=== PATIENT | male | born 1985 ===

== ENCOUNTER 2017-02-11 15:44 | Emergency (ER) | payer OTHER ==
[~2017-02-11] VITALS: Ht 172.7 cm; Wt 79.4 kg
[~2017-02-11 15:44] MED LIST: ALBU90OI INH; AMOX500 PO; AZIT250 PO; BUPR150T2 PO; Bactrim Ds Tab1 EACH PO; CEPH500 PO; CLIN300 PO; CRUTCH4 USE; HYDACE5 PO; HYDHCL25 PO; IBUP600 PO; IBUP800 PO; Keflex500 MG PO; MULTIVITAMIN; MUPI2TO TOP; Mobic15 MG PO; PRAZ5 PO; PRED20 PO; PROM25 PO; Prednisone20 MG PO; QUET100; RISPERDAL; SEROQUEL; SERT100 PO; SPACE CHAMBER1 EACH MC; TRILEPTAL; Ventolin Soln3 ML INH
== END 2017-02-11 17:40 | disposition left against medical advice (07) ==
LOC: ER 15:44
DX: S52.612A Displaced fracture of left ulna styloid process, initial encounter for closed fracture (principal); I10 Essential (primary) hypertension; J45.909 Unspecified asthma, uncomplicated; F17.200 Nicotine dependence, unspecified, uncomplicated; Z86.14 Personal history of Methicillin resistant Staphylococcus aureus infection; Z88.5 Allergy status to narcotic agent; W01.0XXA Fall on same level from slipping, tripping and stumbling without subsequent striking against object, initial encounter
CPT/HCPCS: 73110; 99283

== ENCOUNTER 2019-06-12 03:34 | Emergency (ER) | payer OTHER ==
[~2019-06-12] VITALS: Ht 175.3 cm; Wt 86.2 kg
[~2019-06-12 03:34] MED LIST changes: +METH40 PO
== END 2019-06-12 04:41 | disposition home or self-care (01) ==
LOC: ER 03:34
DX: R06.02 Shortness of breath (principal); I10 Essential (primary) hypertension; J45.909 Unspecified asthma, uncomplicated; F17.210 Nicotine dependence, cigarettes, uncomplicated; Z88.5 Allergy status to narcotic agent
CPT/HCPCS: 71045; 99283-25

== ENCOUNTER 2019-07-22 21:49 | Emergency (ER) | payer OTHER ==
[~2019-07-22] VITALS: Ht 175.3 cm; Wt 81.7 kg
[2019-07-23] MEDS ORDERED: [UNRECOGNIZED DRUG - OTHER] SL (03:52)
[2019-07-23] MEDS ORDERED: EUTHYROX25 MCG (03:53)
[2019-07-23] MEDS ORDERED: Prednisone20 MG PO (04:51)
== END 2019-07-22 23:04 | disposition left against medical advice (07) ==
LOC: ER 21:49
DX: Z53.21 Procedure and treatment not carried out due to patient leaving prior to being seen by health care provider (principal)

== ENCOUNTER 2019-07-23 03:25 | Emergency (ER) | payer OTHER ==
[~2019-07-23] VITALS: Ht 175.3 cm; Wt 83.9 kg
[2019-07-23] MEDS ORDERED: [UNRECOGNIZED DRUG - OTHER] SL (03:52)
[2019-07-23] MEDS ORDERED: EUTHYROX25 MCG (03:53)
[2019-07-23] MEDS ORDERED: Prednisone20 MG PO (04:51)
== END 2019-07-23 05:07 | disposition home or self-care (01) ==
LOC: ER 03:25
DX: L50.0 Allergic urticaria (principal); I10 Essential (primary) hypertension; F17.210 Nicotine dependence, cigarettes, uncomplicated; Z88.5 Allergy status to narcotic agent; Z79.899 Other long term (current) drug therapy
CPT/HCPCS: 96361; 96374; 96375; 99282-25; J1200; J2930; J7030

== ENCOUNTER 2019-07-25 17:23 | Emergency (ER) | payer OTHER ==
[~2019-07-25] VITALS: Ht 175.3 cm; Wt 83.5 kg
[~2019-07-25 17:23] MED LIST changes: +EUTHYROX25 MCG; +[UNRECOGNIZED DRUG - OTHER] SL
[2019-07-25] MEDS ORDERED: CEPH500 PO (20:21)
== END 2019-07-25 20:45 | disposition home or self-care (01) ==
LOC: ER 17:23
DX: S51.011A Laceration without foreign body of right elbow, initial encounter (principal); J45.909 Unspecified asthma, uncomplicated; I10 Essential (primary) hypertension; Z23 Encounter for immunization; Z88.5 Allergy status to narcotic agent; Z79.2 Long term (current) use of antibiotics; Z79.899 Other long term (current) drug therapy; F17.210 Nicotine dependence, cigarettes, uncomplicated; X58.XXXA Exposure to other specified factors, initial encounter
CPT/HCPCS: 73090; 90471; 90714; 99283-25; A9270

== ENCOUNTER → 2019-12-19 | Outpatient (CLI) | payer OTHER ==
[~2019-12-19] MED LIST changes: +FLUT1DIS2 INH
[2019-12-21 13:09] LABS: CHLAMYDIA BY NAA Negative (Negative); GONOCOCCUS BY NAA Negative (Negative); TRICH VAG BY NAA Negative (Negative)
== END ==
LOC: LAB SHORT 14:34 → LAB UCHC 14:34
PROVIDERS: Registered Nurse Community Health
DX: Z20.2 Contact with and (suspected) exposure to infections with a predominantly sexual mode of transmission (principal)
CPT/HCPCS: 87491; 87591; 87661

== ENCOUNTER 2019-12-25 08:27 | Emergency (ER) | payer OTHER ==
[~2019-12-25] VITALS: Ht 175.3 cm; Wt 81.7 kg
[2019-12-25] MEDS ORDERED: Prednisone20 MG PO (09:33)
[2019-12-25] MEDS ORDERED: ALBU90OI INH (09:33)
== END 2019-12-25 10:02 | disposition home or self-care (01) ==
LOC: ER 08:27
DX: J44.1 Chronic obstructive pulmonary disease with (acute) exacerbation (principal); I10 Essential (primary) hypertension; J45.909 Unspecified asthma, uncomplicated; F17.210 Nicotine dependence, cigarettes, uncomplicated; Z88.5 Allergy status to narcotic agent; Z79.52 Long term (current) use of systemic steroids; Z79.899 Other long term (current) drug therapy
CPT/HCPCS: 71045; 94640; 99284-25; J7512

== ENCOUNTER 2020-01-20 05:01 | Emergency (ER) | payer OTHER ==
[~2020-01-20] VITALS: Ht 175.3 cm; Wt 86.2 kg
[2020-01-20] MEDS ORDERED: PRED20 PO (06:09)
[2020-01-20] MEDS ORDERED: FLUT1DIS2 INH (07:31)
[2020-01-20] MEDS ORDERED: ALBU90OI INH (07:31)
== END 2020-01-20 07:40 | disposition home or self-care (01) ==
LOC: ER 05:01
DX: J45.901 Unspecified asthma with (acute) exacerbation (principal); Z79.899 Other long term (current) drug therapy
CPT/HCPCS: 94644; 96365; 96375; 99284-25; J1100; J3475

== ENCOUNTER 2020-02-09 02:38 | Emergency (ER) | payer OTHER ==
[~2020-02-09] VITALS: Ht 175.3 cm; Wt 86.2 kg
[2020-02-09 04:06] LABS: Influenza A, PCR Negative (NEGATIVE); Influenza B, PCR Negative (NEGATIVE); Resp Syncytial Virus, PCR Negative (NEGATIVE); SARS-Cov-2 (COVID-19) PCR, MMC Negative (NEGATIVE)
== END 2020-02-09 04:25 | disposition home or self-care (01) ==
LOC: ER 02:38
PROVIDERS: Emergency Medicine
DX: J02.9 Acute pharyngitis, unspecified (principal); R06.02 Shortness of breath; R51.9 Headache, unspecified; I10 Essential (primary) hypertension; J45.909 Unspecified asthma, uncomplicated; F17.210 Nicotine dependence, cigarettes, uncomplicated; Z20.828 Contact with and (suspected) exposure to other viral communicable diseases; Z88.5 Allergy status to narcotic agent; Z79.52 Long term (current) use of systemic steroids; Z79.899 Other long term (current) drug therapy
CPT/HCPCS: 0241U; 99283

== ENCOUNTER 2020-02-26 17:16 | Emergency (ER) | payer OTHER ==
[~2020-02-26] VITALS: Ht 175.3 cm; Wt 86.2 kg
[2020-02-26] MEDS ORDERED: FLUTICASONE-SA1 EAC8 (17:22)
[2020-02-26] MEDS ORDERED: Ventolin/Prove6.7 GM (17:22)
[2020-06-02] MEDS ORDERED: METH40 (23:18)
[2020-06-03] MEDS ORDERED: PRED20 PO (00:07)
[2020-06-22] MEDS ORDERED: CEPH500 PO (05:10)
[2020-06-22] MEDS ORDERED: Bactrim Ds Tab1 EACH PO (05:10)
== END 2020-02-26 17:46 | disposition home or self-care (01) ==
LOC: ER 17:16
DX: Z00.00 Encounter for general adult medical examination without abnormal findings (principal); I10 Essential (primary) hypertension; J45.909 Unspecified asthma, uncomplicated; F17.210 Nicotine dependence, cigarettes, uncomplicated; Z88.5 Allergy status to narcotic agent; Z79.899 Other long term (current) drug therapy
CPT/HCPCS: 93005; 93010; 99281-25

== ENCOUNTER 2020-04-05 20:04 | Emergency (ER) | payer OTHER ==
[~2020-04-05] VITALS: Ht 175.3 cm; Wt 90.7 kg
[~2020-04-05 20:04] MED LIST changes: +FLUTICASONE-SA1 EAC8; +Ventolin/Prove6.7 GM
[2020-04-05] MEDS ORDERED: Prednisone50 MG PO (23:15)
[2020-06-02] MEDS ORDERED: METH40 (23:18)
[2020-06-03] MEDS ORDERED: PRED20 PO (00:07)
[2020-06-22] MEDS ORDERED: Bactrim Ds Tab1 EACH PO (05:10)
[2020-06-22] MEDS ORDERED: CEPH500 PO (05:10)
== END 2020-04-05 23:45 | disposition home or self-care (01) ==
LOC: ER 20:04
DX: J45.901 Unspecified asthma with (acute) exacerbation (principal); I10 Essential (primary) hypertension; F17.210 Nicotine dependence, cigarettes, uncomplicated; Z79.899 Other long term (current) drug therapy; Z88.5 Allergy status to narcotic agent
CPT/HCPCS: 94640; 94644; 94645; 99285-25; J7512

== ENCOUNTER 2020-06-02 22:59 | Emergency (ER) | payer OTHER ==
[~2020-06-02] VITALS: Ht 175.3 cm; Wt 90.7 kg
== END 2020-06-03 00:10 | disposition home or self-care (01) ==
LOC: ER 22:59
DX: J45.901 Unspecified asthma with (acute) exacerbation (principal)
CPT/HCPCS: 94644; 96365; 96375; 99284-25; J2930; J3475

== ENCOUNTER 2020-09-13 10:23 | Emergency (ER) | payer OTHER ==
[~2020-09-13] VITALS: Ht 175.3 cm; Wt 93.9 kg
[~2020-09-13 10:23] MED LIST changes: +METH40; +Prednisone50 MG PO
[2020-09-13] MEDS ORDERED: MULVITA PO (10:46)
[2020-09-13] MEDS ORDERED: SUBOXONE 8 MG-1 EACH SL (10:46)
[2020-09-13] MEDS ORDERED: EUTHYROX50 MCG (10:47)
[2020-09-13] MEDS ORDERED: ANTIFUNGAL30 GM TOP (10:51)
[2020-09-13] MEDS ORDERED: CEPH500 PO (10:51)
== END 2020-09-13 11:00 | disposition home or self-care (01) ==
LOC: ER 10:23
DX: B35.3 Tinea pedis (principal); L03.116 Cellulitis of left lower limb; L03.115 Cellulitis of right lower limb; F17.210 Nicotine dependence, cigarettes, uncomplicated; Z88.5 Allergy status to narcotic agent; Z79.899 Other long term (current) drug therapy
CPT/HCPCS: 99282

== ENCOUNTER 2020-09-20 18:39 | Emergency (ER) | payer OTHER ==
[~2020-09-20] VITALS: Ht 175.3 cm; Wt 93.4 kg
[~2020-09-20 18:39] MED LIST changes: +ANTIFUNGAL30 GM TOP; +EUTHYROX50 MCG; +MULVITA PO; +SUBOXONE 8 MG-1 EACH SL
== END 2020-09-20 23:05 | disposition home or self-care (01) ==
LOC: ER 18:39
DX: L29.9 Pruritus, unspecified (principal); I10 Essential (primary) hypertension; F17.210 Nicotine dependence, cigarettes, uncomplicated; Z88.5 Allergy status to narcotic agent; Z79.899 Other long term (current) drug therapy
CPT/HCPCS: 99282

== ENCOUNTER 2021-02-01 12:58 | Inpatient (IN) | payer OTHER ==
[~2021-02-01] VITALS: Ht 175.3 cm; Wt 89.0 kg
[2021-02-01 13:52] LABS: BASOPHILS ABSOLUTE AUTO 0.08 K/mm3 (0.00-0.23); BASOPHILS PERCENT AUTO 1 % (0-2); EOSINOPHILS ABSOLUTE AUTO 0.92 K/mm3 (0.00-0.68); EOSINOPHILS PERCENT AUTO 11 % (0-6); Hematocrit 40.5 % (37.0-53.0); Hemoglobin 13.7 g/dL (13.5-17.5); IMMATURE GRAN ABSOLUTE AUTO 0.01 K/mm3 (0.00-0.10); IMMATURE GRAN PERCENT AUTO 0 % (0-1); LYMPHOCYTES ABSOLUTE AUTO 2.92 K/mm3 (0.84-5.20); LYMPHOCYTES PERCENT AUTO 36 % (21-46); MONOCYTES ABSOLUTE AUTO 0.56 K/mm3 (0.16-1.47); MONOCYTES PERCENT AUTO 7 % (4-13); Mean Corpuscular HGB 28.5 pg (26.0-34.0); Mean Corpuscular HGB Conc 33.8 g/dL (31.5-36.5); Mean Corpuscular Volume 84 fL (80-100); Mean Platelet Volume 11.1 fL (9.1-12.4); NEUTROPHILS PERCENT AUTO 45 % (41-73); Platelet Count 348 K/mm3 (150-400); RDW Coefficient Variation 13.6 % (11.7-14.2); RDW Standard Deviation 42.3 fL (35.1-46.3); Red Blood Cell Count 4.81 M/mm3 (4.30-5.90); White Blood Cell Count 8.09 K/mm3 (4.00-11.30)
[2021-02-01 14:16] LABS: Alanine Aminotransfer (ALT/SGP 26 U/L (12-78); Albumin, Blood 3.5 g/dL (3.4-5.0); Albumin/Globulin Ratio 0.8 (0.8-1.8); Alk Phos 95 U/L (50-136); Anion Gap 8 mmol/L (6-16); Aspartate Aminotrans (AST/SGOT 17 U/L (12-37); Bilirubin, Total 0.3 mg/dL (0.1-1.0); Blood Urea Nitrogen 14 mg/dL (8-24); Bun/Creatinine Ratio 19.4 (12.0-20.0); CO2, Blood 25 mmol/L (21-32); Calcium, Blood 9.2 mg/dL (8.5-10.1); Chloride, Blood 107 mmol/L (98-108); Creatinine, Blood 0.72 mg/dL (0.60-1.20); Ethanol (Alcohol), Blood, Med <3 mg/dL; Globulin, Blood 4.4 g/dL (2.2-4.0); Glomerular Filtration Rate >60 (60-); Glucose, Blood 168 mg/dL (70-99); Potassium, Blood 3.7 mmol/L (3.5-5.5); Sodium, Blood 140 mmol/L (136-145); Total Protein, Blood 7.9 g/dL (6.4-8.2)
[2021-02-01 14:27] LABS: PO2 Arterial 76.2 mmHg (80-100); pH Blood Arterial 7.32 (7.35-7.45)
--- NOTE | 2021-02-01 18:34 | NUR ---
PT ARRIVED TO ICU AT 1605. ORIENTEDX4. C/O SEVERE PAIN AT L CHEST SITE. PT WAS TREATED WITH PO DILAUDID, FENTANYL AND TORADOL. MOVES ALL EXTREMETIES. CHEST TUBE TO -20, NO AIR LEAK, DRAINING SANGINOUS FLUID - [address] WAS PLACED. NO DRAINAGE VISIBLE FROM DRESSING. HE IS ON 2L NC WITH SATS >95. DENIES SHORTNESS OF BREATH. A POWERGLIDE WAS PLACED BY FANNY IN THE R UPPER ARM. PT FIANCE AT BEDSIDE. PT NECKLACES SENT HOME WITH PT'S FIANCE. PT IS NOW APPEARS COMFORTABLE SLEEPING.
--- NOTE | 2021-02-01 19:00 | NUR ---
ASSUME CARE PT LYING IN BED W/ EYES CLOSED RESTING QUIETLY. HE IS EASILY AROUSABLE AND ALERT AND ORIENTED. ON 2L NC HE IS SATING >98% AND ALL OTHER VITALS WNL. HE IS NPO AND HAS NOT VOIDED YET THIS SHIFT. LR 75ML/HR INFUSING TO DEMI P.G. THAT IS C/D/I. LEFT CHEST TUBE IN PLACE TO -20CM H20 SUCTION DRAINING SANGUINEOUS FLUID W/ INTACT DRESSING. SEE SHIFT ASSESSMENT FOR DETAILS.
--- NOTE | 2021-02-01 21:25 | NUR ---
CHEST TUBE NOTICED BLOODY DRAINAGE FROM CHEST TUBE SITE BUT THERE APPEARS TO BE ADEQUATE TIDALING AND PT SATING >97%. INFORMED CHARGE, RN WHO PLACED ORDER FOR CHEST XRAY. CALLED AND SPOKE W/ DR. HOLLINGSWORTH WHO STATES THAT HE IS NOT ABLE TO READ CHEST XRAYS FROM HOME BUT THAT LONG PT'S SATS ARE GOOD AND THERE IS ADEQUATE TIDALING THAT IS SHOULD BE OK.
[2021-02-01 23:23] LABS: U Amphetamine Screen DETECTED; U Barbituate Screen Not Detected; U Benzodiazapine Screen Not Detected; U Buprenorphine Screen Not Detected; U Cannabinoids Screen Not Detected; U Cocaine Screen Not Detected; U Methadone Screen Not Detected; U Methamphetamine Screen DETECTED; U Opiates Screen DETECTED; U Oxycodone Screen Not Detected; U Phencyclidine Screen Not Detected; U Propoxyphene Screen Not Detected
--- NOTE | 2021-02-02 06:45 | NUR ---
SHIFT SUMMARY: NO ACUTE OVERNIGHT EVENTS. PT REMAINS DROSWY BUT EASILY AROUSABLE AND ALERT/ORIENTED. HE CONTINUES TO HAVE LEFT UPPER CHEST PAIN AND MEDICATED PER EMAR. ON 2LNC HE SATS >98%, HR 80-110, AND BP STABLE. HE CONTINUES TO USE THE URINAL W/ A GOOD AMOUNT OF CLEAR YELLOW URINE OUTPUT. TMAX 99.3. NO BM THIS SHIFT. CHANGED LEFT CHEST TUBE DRESSING AND IT REMAINS IS C/D/I WITH NO AIR LEAKS AND DRAINING SEROSANGUINEOUS FLUID. SKIN IS WARM, DRY, AND INTACT. LR CONTINUES TO INFUSE AT 75ML/HR. WILL REPORT TO ONCOMING RN WHEN AVAILABLE.
--- NOTE | 2021-02-02 13:40 | NUR ---
PT. ARRIVE TO FLOOR AT 1230, VIA GURNEY. DOZING AND DID REQUEST PAIN MED RECENTLY, 7 OUT OF 10 CHEST TUBE DISCOMFORT, LEFT SIDE. HAS SINCE BEEN SLEEPING, RESPIRATIONS UNLABORED. cHEST TUBE DRSG. LEFT CHEST CLEAN AND DRY, INTACT. CT TO WATER SEAL, 20CM., SECURED. INSTRUCTED PT. TO USE CALL LIGHT FOR CONCERNS, COMPLAINTS, NEEDS,AND ASSIST TO BR. VERBALIZE UNDERSTANDING.
--- NOTE | 2021-02-02 14:07 | NUR ---
PT. DECLINE GOING TO IMAGING AT THIS TIME. "LATER". TORADOL GIVEN AT THIS TIME FOR C/O GENERALIZE CHEST DISCOMFORT. SATS 98% ON RA. CT TO WATER SEAL
--- NOTE | 2021-02-02 14:23 | NUR ---
TEXT TO DR. HOLLINGSWORTH TO LET HIM KNOW 2 VIEW XRAY REFUSED BY PT. AT THIS TIME.
--- NOTE | 2021-02-02 18:12 | NUR ---
PORTABLE CXR DONE IN ROOM. PATIENT TOLERATE WELL. DRSG. LEFT CHEST REMAINS CLEAN, DRY AND INTACT. CONT. PULSE OX READS 97% ON RA. CT DRAINAGE SEROUSANG TO WATER SEAL. VERBALIZE PAIN RELIEF WITH ONE NORCO.
--- NOTE | 2021-02-03 06:40 | NUR ---
PT IS IN BED AT THIS TIME WHERE HE REMAINS THROUHOUT THE NIGHT AND IS RESTING COMFORTABLY IN STABLE CONDITION. HE IS ASSISTED WITH CARE AND ADLS, C/O PAIN MAINLY IN THE UPPER TORSO AND LEFT FLANK THAT IS RELIEVED BY HYDROCODONE, NO OTHER COMPLAINTS. HE HAS A CHEST TUBE IN PLACE AND IS PATENT, DRESSING OVER THE CHEST TUBE SITE ON THE LEFT FLANK IS DRY AND CLEAN, PT IS ENCOURAGED TO PRACTICE COUGHT AND DEEP BREATHING TO PROMOTE AIR EXCHAGE AND LUNG FUNCTION, HE IS ASSISTED WITH TURNING AND REPOSITIONING FOR COMFORT AND CIRCULATION, CALL PICKETT GIVEN TO HIM AND REMINDED TO CALL FOR HELP WHEN ASSISTANCE IS NEEDED HE IS MONITORED.
--- NOTE | 2021-02-03 11:06 | NUR ---
DETECTIVES IN TO SEE PT
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
--- NOTE | 2021-02-03 13:46 | NUR ---
Spiritual care visit. Pt. was resting but alert. Pt. was not interested in engaging, but when pastoral prayer was offered, he accepted. After consulting, Another public relations assistant will monitor pt. progress.
--- NOTE | 2021-02-03 14:25 | NUR ---
DISCHARGING DC'D IVS, CATHETERS INTACT. REVIEWED DC PAPERWORK, PT VERBALIZED UNDERSTANDING. PROVIDED DRESSING CHANGES. PROVIDED G[employer] HOSPITAL PANTS PT HAD NO CLOTHING. PT GETTING DRESSED, RIDE IS ON THE WAY.
--- NOTE | 2021-02-03 14:32 | NUR ---
PT LEFT UNIT IN WC HAD POSSESSIONS AND DC PAPERWORK, ACCOMPANIED BY MICHAEL.
== END 2021-02-03 14:35 | disposition home or self-care (01) | DRG 200 ==
LOC: ER 12:58 → ICUW 15:00 → SURS 02-02 12:47
PROVIDERS: Emergency Medicine; ADMIT Surgery
PROC: 0W9B30Z Drainage of Left Pleural Cavity with Drainage Device, Percutaneous Approach (ICD-10-PCS; principal; 2021-02-01)
DX: S27.2XXA Traumatic hemopneumothorax, initial encounter (principal); J98.11 Atelectasis; J45.909 Unspecified asthma, uncomplicated; B19.20 Unspecified viral hepatitis C without hepatic coma; F11.10 Opioid abuse, uncomplicated; F17.210 Nicotine dependence, cigarettes, uncomplicated; F15.10 Other stimulant abuse, uncomplicated; Z86.14 Personal history of Methicillin resistant Staphylococcus aureus infection; Z79.52 Long term (current) use of systemic steroids; Z79.891 Long term (current) use of opiate analgesic; X99.1XXA Assault by knife, initial encounter
CPT/HCPCS: 32551; 36600; 71045; 71260; 74177; 80053; 82803; 85025; 86850; 86900; 86901; 96365; 96375; 96376; 99285-25; A9270; C1751; G0480; J0690; J1885; J3010; J7030; J7120; Q9967

== ENCOUNTER 2022-09-06 18:04 | Emergency (ER) | payer OTHER ==
[~2022-09-06] VITALS: Ht 175.3 cm; Wt 90.7 kg
[2022-09-06 18:36] VITALS: BP 133/78
[2022-09-06] MEDS ORDERED: ERYT.5TO RIGHTEYE (21:43)
[2022-09-06] MEDS ORDERED: OCUFLOX510 RIGHTEYE (21:43)
== END 2022-09-06 21:58 | disposition home or self-care (01) ==
LOC: ER 18:04
DX: H57.11 Ocular pain, right eye (principal); Z88.5 Allergy status to narcotic agent; I10 Essential (primary) hypertension; J45.909 Unspecified asthma, uncomplicated; F17.210 Nicotine dependence, cigarettes, uncomplicated
CPT/HCPCS: 99282; A9270

== ENCOUNTER 2024-05-21 15:58 | Emergency (ER) | payer OTHER ==
[~2024-05-21] VITALS: Ht 175.3 cm; Wt 95.2 kg
[~2024-05-21 15:58] MED LIST changes: +ERYT.5TO RIGHTEYE; +OCUFLOX510 RIGHTEYE
[2024-05-21 16:09] VITALS: BP 144/85
[2024-05-21] MEDS ORDERED: Methadone HCL 10 MG TAB PO ONE (16:45)
== END 2024-05-21 16:50 | disposition home or self-care (01) ==
LOC: ER 15:58
DX: F11.91 Opioid use, unspecified, in remission (principal); Z76.0 Encounter for issue of repeat prescription; F17.210 Nicotine dependence, cigarettes, uncomplicated; J45.909 Unspecified asthma, uncomplicated; Z79.899 Other long term (current) drug therapy; Z88.5 Allergy status to narcotic agent
CPT/HCPCS: 99281; A9270

== ENCOUNTER 2024-06-08 16:59 | Emergency (ER) | payer OTHER ==
[~2024-06-08] VITALS: Ht 175.3 cm; Wt 95.2 kg
[2024-06-08 17:26] VITALS: BP 145/84
[2024-06-08] MEDS ORDERED: Methadone HCL 10 MG TAB PO ONE (19:40)
== END 2024-06-08 19:50 | disposition home or self-care (01) ==
LOC: ER 16:59
DX: Z76.0 Encounter for issue of repeat prescription (principal); I10 Essential (primary) hypertension; J45.909 Unspecified asthma, uncomplicated; F17.210 Nicotine dependence, cigarettes, uncomplicated; Z79.899 Other long term (current) drug therapy; Z88.5 Allergy status to narcotic agent
CPT/HCPCS: 99281; A9270

== ENCOUNTER 2024-06-09 19:01 | Emergency (ER) | payer OTHER ==
[~2024-06-09] VITALS: Ht 172.7 cm; Wt 81.7 kg
[2024-06-09 19:24] VITALS: BP 165/83
[2024-06-09] MEDS ORDERED: Methadone HCL 10 MG TAB PO ONE (19:30)
== END 2024-06-09 20:18 | disposition home or self-care (01) ==
LOC: ER 19:01
DX: Z76.89 Persons encountering health services in other specified circumstances (principal); I10 Essential (primary) hypertension; J45.909 Unspecified asthma, uncomplicated; F17.210 Nicotine dependence, cigarettes, uncomplicated; Z88.5 Allergy status to narcotic agent; Z79.899 Other long term (current) drug therapy
CPT/HCPCS: 99281; A9270

== ENCOUNTER 2024-09-23 03:21 | Emergency (ER) | payer OTHER ==
[~2024-09-23] VITALS: Ht 175.3 cm; Wt 99.8 kg
[2024-09-23 03:40] VITALS: BP 155/98
[2024-09-23] MEDS ORDERED: BACTRIM DS TAB1 EAC1 PO (03:53)
[2024-09-23] MEDS ORDERED: Trimethoprim/Sulfamethoxazole DS Tab PO ONE (03:55)
[2024-09-23 03:57] LABS: BASOPHILS ABSOLUTE AUTO 0.06 K/mm3 (0.00-0.23); BASOPHILS PERCENT AUTO 1 % (0-2); EOSINOPHILS ABSOLUTE AUTO 0.53 K/mm3 (0.00-0.68); EOSINOPHILS PERCENT AUTO 9 % (0-6); Hematocrit 42.1 % (37.0-53.0); Hemoglobin 14.5 g/dL (13.5-17.5); IMMATURE GRAN ABSOLUTE AUTO 0.04 K/mm3 (0.00-0.10); IMMATURE GRAN PERCENT AUTO 1 % (0-1); LYMPHOCYTES ABSOLUTE AUTO 2.04 K/mm3 (0.84-5.20); LYMPHOCYTES PERCENT AUTO 34 % (21-46); MONOCYTES ABSOLUTE AUTO 0.35 K/mm3 (0.16-1.47); MONOCYTES PERCENT AUTO 6 % (4-13); Mean Corpuscular HGB Conc 34.4 g/dL (31.5-36.5); Mean Corpuscular Volume 87 fL (80-100); NEUTROPHILS ABSOLUTE AUTO 3.07 K/mm3 (1.96-9.15); NEUTROPHILS PERCENT AUTO 50 % (41-73); NRBC ABSOLUTE 0.00 K/mm3 (0.00-0.02); NRBC Auto 0.0 /100 WBC (0.0-0.2); RDW Coefficient Variation 12.7 % (11.7-14.2); RDW Standard Deviation 40.4 fL (35.1-46.3)
[2024-09-23 04:01] LABS: Alanine Aminotransfer (ALT/SGP 33.0 U/L (12-78); Albumin, Blood 3.6 g/dL (3.4-5.0); Albumin/Globulin Ratio 0.8 (0.8-1.8); Anion Gap 7.0 mmol/L (3-11); Aspartate Aminotrans (AST/SGOT 28.0 U/L (12-37); Bilirubin, Total 0.2 mg/dL (0.1-1.0); Blood Urea Nitrogen 12.0 mg/dL (8-24); CO2, Blood 28.0 mmol/L (21-32); Calcium, Blood 8.5 mg/dL (8.5-10.1); Chloride, Blood 106.0 mmol/L (98-108); Creatinine, Blood 0.87 mg/dL (0.60-1.20); Globulin, Blood 4.6 g/dL (2.2-4.0); Glucose, Blood 93.0 mg/dL (70-99); Potassium, Blood 4.3 mmol/L (3.5-5.5); Sodium, Blood 137.0 mmol/L (136-145); Total Protein, Blood 8.2 g/dL (6.4-8.2)
[2024-09-23 04:03] LABS: Platelet Count 277 K/mm3 (150-400)
== END 2024-09-23 04:03 | disposition home or self-care (01) ==
LOC: ER 03:21
PROVIDERS: Student in an Organized Health Care Education/Training Program
DX: L03.113 Cellulitis of right upper limb (principal); F19.90 Other psychoactive substance use, unspecified, uncomplicated; I10 Essential (primary) hypertension; J45.909 Unspecified asthma, uncomplicated; F17.210 Nicotine dependence, cigarettes, uncomplicated; Z79.899 Other long term (current) drug therapy; Z88.5 Allergy status to narcotic agent
CPT/HCPCS: 80053; 85025; 99283-25; A9270

== ENCOUNTER 2025-01-19 18:24 | Emergency (ER) | payer OTHER ==
[~2025-01-19] VITALS: Ht 175.3 cm; Wt 81.7 kg
[~2025-01-19 18:24] MED LIST changes: +BACTRIM DS TAB1 EAC1 PO
[2025-01-19 18:42] VITALS: BP 151/84
[2025-01-19] MEDS ORDERED: Trimethoprim/Sulfamethoxazole DS Tab PO ONE (18:50)
[2025-01-19] MEDS ORDERED: ALEVAZOL56.7 G1 TOP (18:51)
[2025-01-19] MEDS ORDERED: CEPH500 PO (18:51)
[2025-01-19] MEDS ORDERED: BACTRIM DS TAB1 EAC1 PO (18:51)
== END 2025-01-19 19:31 | disposition home or self-care (01) ==
LOC: ER 18:24
DX: L03.115 Cellulitis of right lower limb (principal); B35.3 Tinea pedis; F17.210 Nicotine dependence, cigarettes, uncomplicated; Z88.5 Allergy status to narcotic agent; Z79.899 Other long term (current) drug therapy
CPT/HCPCS: 99282; A9270